=== PATIENT | female | born 1990 | race Caucasian/White ===

== ENCOUNTER 2018-08-30 14:16 | Emergency (ER) | payer SELFPAY, OTHER ==
[2018-08-30] MEDS: PERCOCET 5MG/325MG TAB PO (15:41)
== END 2018-08-30 16:59 | disposition home or self-care (01) ==
LOC: M ED 14:16
DX: K13.79 Other lesions of oral mucosa (principal); K08.89 Other specified disorders of teeth and supporting structures; Z72.0 Tobacco use; Z88.8 Allergy status to other drugs, medicaments and biological substances
CPT/HCPCS: 99283

== ENCOUNTER → 2021-06-05 | Outpatient (REF) ==
[~2021-06-05] MED LIST: AMOX500T PO; PERC5TAB12 PO
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
[2021-06-05 20:05] LABS: RSV AMPLIFICATION NEGATIVE (NEGATIVE)
== END ==
LOC: M LAB 09:03